=== PATIENT | male | born 1990 | race African-American/Black ===

== ENCOUNTER 2023-03-12 11:15 | Outpatient (CLI) | payer OTHER ==
--- NOTE | 2023-03-12 13:28 | XRAY Report ---
PROCEDURE: Ribs w/PA Chest 3+V RT INDICATIONS: RIGHT SIDED BACK PAIN TECHNIQUE: 3 views of the right ribs were acquired, along with a single view chest. COMPARISON: None. FINDINGS: Surgical changes and devices: None. Bones and chest wall: No acute displaced rib fracture. No suspicious bony lesions. Overlying soft tissues appear unremarkable. Lungs and pleura: No pleural effusions or pneumothorax. Lungs appear clear. Mediastinum: Mediastinal contours appear normal. Heart size is normal. IMPRESSION: No acute displaced rib fracture or pneumothorax. Reviewed by: Olivier Cummins MD on 03/12/2023 1:27 PM [facility] Approved by: Olivier Cummins MD on 03/12/2023 1:27 PM [facility] Station ID: [id number]
== END 2023-03-12 11:30 | disposition home or self-care (01) ==
LOC: DI.N 11:15
PROVIDERS: ATTEND Physician Assistant Medical
DX: M54.9 Dorsalgia, unspecified (principal)